=== PATIENT | male | born 1970 | race Caucasian/White ===

== ENCOUNTER 2020-12-09 00:24 | Emergency (ER) | payer MEDICAID ==
[~2020-12-09] VITALS: Ht 167.6 cm; Wt 81.6 kg
[2020-12-09 00:48] VITALS: BP 135/77
--- NOTE | 2020-12-09 00:54 | NUR ---
PT AMBULATED TO LOBBY.
[2020-12-09] MEDS ORDERED: LIDOCAINE MPF 1% 10 MG/ML VIAL INJ ONE (01:35)
[2020-12-09] MEDS ORDERED: AMOXICILLIN 500 MG CAP PO ONE (01:35)
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
--- NOTE | 2020-12-09 03:22 | NUR ---
PATIENT AMBULATED TO THE BATHROOM
[2020-12-09] MEDS ORDERED: LIDOCAINE MPF 1% 5 ML ONE (04:16)
[2020-12-09] MEDS ORDERED: IBUP-2218 PO (04:41)
[2020-12-09] MEDS ORDERED: AMOX-1000 PO (04:41)
--- NOTE | 2020-12-09 05:15 | NUR ---
ERMD AT BEDSIDE.
[2020-12-09 05:42] VITALS: BP 130/71
--- NOTE | 2020-12-09 05:42 | NUR ---
Patient discharged with v/s stable. Written and verbal after care instructions given and explained. Patient alert, oriented and verbalized understanding of instructions. Ambulatory with steady gait. All questions addressed prior to discharge. ID band removed. Patient advised to follow up with PMD. Rx of AUGMENTIN AND MOTRIN given. Patient educated on indication of medication including possible reaction and side effects. Opportunity to ask questions provided and answered.
== END 2020-12-09 05:42 | disposition home or self-care (01) ==
LOC: MED 00:24
DX: S01.312A Laceration without foreign body of left ear, initial encounter (principal); Y04.0XXA Assault by unarmed brawl or fight, initial encounter; Y93.89 Activity, other specified; Y92.89 Other specified places as the place of occurrence of the external cause; Y99.8 Other external cause status
CPT/HCPCS: 12013; 99283; J2001